=== PATIENT | male | born 1950 | race Caucasian/White ===

== ENCOUNTER 2021-01-15 12:19 | Emergency (ER) | payer OTHER ==
[2021-01-15 15:11] LABS: HEMOGLOBIN 11.3 gm/dl (14.0-17.5); RED BLOOD COUNT 3.74 M/UL (4.20-5.50); WHITE BLOOD COUNT 6.1 K/UL (4.5-11.0)
[2021-01-15 15:43] LABS: BUN/CREATININE RATIO 7 (0-10)
== END 2021-01-15 17:43 | disposition home or self-care (01) ==
LOC: ER1 12:19
PROVIDERS: Physician Assistant
DX: K29.70 Gastritis, unspecified, without bleeding (principal); I12.9 Hypertensive chronic kidney disease with stage 1 through stage 4 chronic kidney disease, or unspecified chronic kidney disease; N18.9 Chronic kidney disease, unspecified; D63.1 Anemia in chronic kidney disease; F17.210 Nicotine dependence, cigarettes, uncomplicated
CPT/HCPCS: 80053; 81001; 82550; 82553; 83605; 83874; 84484; 85025; 99284